=== PATIENT | female | born 1980 | race Caucasian/White ===

== ENCOUNTER → 2019-08-25 14:12 | Outpatient (BNVA) | payer BC, SELFPAY | PROVIDERS: Visit Provider Obstetrics & Gynecology | DX: Z12.4 Encounter for screening for malignant neoplasm of cervix (principal) | CPT/HCPCS: 88175 ==

== ENCOUNTER → 2020-04-13 15:21 | Outpatient (BNVA) | payer BC, SELFPAY | PROVIDERS: Visit Provider Internal Medicine | DX: R41.3 Other amnesia (principal); D68.59 Other primary thrombophilia; F41.9 Anxiety disorder, unspecified; F32.9 Major depressive disorder, single episode, unspecified; R37 Sexual dysfunction, unspecified | CPT/HCPCS: 80053; 82607; 82746; 83036; 83550; 84443; 85025 ==

== ENCOUNTER → 2020-10-05 10:54 | Outpatient (BNVA) | payer BC, SELFPAY | PROVIDERS: PCP Internal Medicine; Visit Provider Nurse Practitioner Family | DX: Z20.822 Contact with and (suspected) exposure to COVID-19 (principal); H66.001 Acute suppurative otitis media without spontaneous rupture of ear drum, right ear | CPT/HCPCS: 87635 ==

== ENCOUNTER → 2021-12-20 15:46 | Outpatient (BNVA) | payer BC, SELFPAY | PROVIDERS: PCP Internal Medicine; Visit Provider Internal Medicine | DX: D64.9 Anemia, unspecified (principal); R41.3 Other amnesia; F41.9 Anxiety disorder, unspecified; F32.9 Major depressive disorder, single episode, unspecified | CPT/HCPCS: 80053; 82607; 83550; 84443; 85025 ==

== ENCOUNTER 2022-01-04 13:09 | Outpatient (CLI) | payer BC, SELFPAY ==
--- NOTE | 2022-01-04 13:00 | MR_ITS ---
WS: [id number] MRI HEAD WITH CONTRAST TECHNIQUE: Sagittal T1, T2 axial, T2 axial FLAIR, axial susceptibility weighted imaging, axial diffus ion weighted images, and coronal T2 images were obtained. Pre and post-T1 axial and post T1 coronal i mages. ADC and FSPGR images. CLINICAL INFORMATION: acute memory impairment. COMPARISON: None. FINDINGS: No evidence of restricted diffusion to suggest acute ischemia. Ventricular system and basal cisterns are patent. No suspicious intracranial signal abnormalities. Cavum septum pellucidum and vergae. No s ignificant parenchymal volume loss. Normal posterior fossa. Normal vascular flow voids at the skull b ase. No extra-axial fluid collections. No evidence of mass or mass effect. Paranasal sinuses and mast oid air cells are well aerated. No hemosiderin on the susceptibly weighted images. Normal optic chiasm and pituitary infundibulum. Temporal lobes and hippocampal formations are normal in appearance. No evidence of mesial temporal sclerosis. Normal cavernous sinuses and Meckel's cave. Normal posterior nasopharynx. Normal parapharyngeal fat. No abnormal intracranial enhancement. Normal dural venous sinuses. Tiny hypoenhancing lesion in the LEFT aspect of the LEFT measuring 3.5 mm like ly pars intermedia cyst or small microadenoma. Recommend correlation with pituitary function studies. MR/MR head wo/w con [id number] IMPRESSION: 1. No evidence of restricted diffusion to suggest acute ischemia. 2. No suspicious intracranial signal abnormalities. Normal calderon-white differen tiation. 3. Temporal lobes and hippocampal formations are normal in appearance. 4. Hypoenhancing 3.5 mm focus in the LEFT posterior pituitary likely incidenta l pars intermedia cyst or small microadenoma. Recommend correlation with pituit nicki function studies for microadenoma. This can be followed up with MRI of the pituitary without and with gadolinium enhancement with dynamic pituitary protoc ol in 6 months 5. No hemosiderin on susceptibly weighted images. 6. No other suspicious findings.
[2022-01-04] MEDS: gadobenate dimeglumine 20 mL vial IV (15:45)
== END 2022-01-04 13:10 | disposition home or self-care (01) ==
LOC: RAD 13:11
PROVIDERS: PCP Internal Medicine; Visit Provider Internal Medicine
DX: R41.3 Other amnesia (principal)
CPT/HCPCS: 70553

== ENCOUNTER 2022-11-06 11:37 | Outpatient (CLI) | payer BC, SELFPAY ==
--- NOTE | 2022-11-06 11:48 | MM_ITS ---
WS: [id number] BILATERAL SCREENING DIGITAL TOMOSYNTHESIS MAMMOGRAM WITH CAD HISTORY: SCREENING COMPARISON: None available. Bilateral CC and MLO views with tomosynthesis and synthetic mammography submitted. Computer aided det ection analyzed. Breast composition: The breasts are heterogeneously dense, which may obscure small masses. No suspici ous masses, microcalcifications or architectural distortion. IMPRESSION: MM/[place] [id number] BI-RADS: 1-Negative FOLLOW UP: 1 Year Follow-up
== END 2022-11-06 11:38 | disposition home or self-care (01) ==
LOC: RAD 11:41
PROVIDERS: PCP Internal Medicine; Visit Provider Nurse Practitioner Women's Health
DX: Z12.31 Encounter for screening mammogram for malignant neoplasm of breast (principal)
CPT/HCPCS: 77063; 77067

== ENCOUNTER 2023-06-24 06:56 | Day surgery (SDC) | payer BC, SELFPAY ==
[2023-06-19 11:24] LABS: Basophils % 0.4 %; Eosinophils # 0.1 10^3/uL (0.0-0.8); Eosinophils % 1.1 %; Hematocrit 39.8 % (36-47); Lymphocytes # 2.1 10^3/uL (0.8-4.8); Lymphocytes % 26.8 %; Mean Corpuscular HGB Conc 33.9 g/dL (30-55); Mean Corpuscular Hemoglobin 30.3 pg (27-33); Mean Corpuscular Volume 89.4 fl (85-98); Mean Platelet Volume 9.8 fL (7.4-10.4); Monocytes # 0.4 10^3/uL (0.2-0.9); Monocytes % 5.4 %; Neutrophils # 5.21 10^3/uL (1.8-7.7); Neutrophils % 65.9 %; Nucleated Red Blood Cells % 0 %; Platelet Count 224 10^3/cmm (157-399); Red Blood Count 4.45 10^6/uL (3.85-5.65); Red Cell Distribution Width 12.9 % (12.1-15.1); White Blood Count 7.91 10^3/uL (3.29-11.43)
--- NOTE | 2023-06-19 11:25 | P.ANESASSM_ITS ---
Pre-Anesthetic Assessment Height/Weight: Height 1.68 m Operation Date: 06/24/23 08:30 Proposed Procedures p Laparoscopic bilateral salpingectomy 79263,Z30.2(Bilateral) - Guicho Clayton MD Familial anesthetic complications: PONV Was Beta Wilfrido taken within 24 hours: N/A Was Clonidine taken within 24 hours: N/A Social No alcohol and No tobacco Exam alert, oriented x 3, clear to auscultation bilaterally and regular rate & rhythm Airway Submandibular: within normal limits Cervical ROM: within normal limits Mallampati: Class II Dentition: full CV/HEM Protein C def. Neuropsych Anxiety and Depression Anesthetic Plan ASA status: 2 Anesthesia: General Medications/Allergies Home Medications Medication Instructions Recorded Confirmed Last Taken Type levonorgestrel 21 mcg/24 hours (8 intrauterine 08/25/19 06/16/23 06/19/23 History yrs) 52 mg intrauterine device (Mirena) vitamin C 50 mg-biotin 1,250 mcg 1 tab PO DAILY 05/10/20 06/19/23 Unknown History chewable tablet (Afxx-Dien-Jshki (vit C-biotin)) rivaroxaban 20 mg tablet (Xarelto) 20 mg PO DAILY #90 tabs 09/05/21 06/19/23 06/17/23 Rx levocetirizine 5 mg tablet (Xyzal) 5 mg PO DAILY 02/18/23 06/19/23 06/19/23 History montelukast 10 mg tablet 10 mg PO DAILY 02/18/23 06/19/23 06/19/23 History Allergies Allergy/AdvReac Type Severity Reaction Status Date / Time No Known Allergies Allergy Verified 06/16/23 08:39 [facility] Anesthesia Medical History Protein C deficiency Genetic-her father also has protein C deficiency. She had a TIA in October 2014 and has been on Xarelto since then. Estrogen-containing contraception is contraindicated No pertinent past medical history Denies: high blood pressure, diabetes, heart, lung, liver, kidney, thyroid, or bleeding problem. PCP: Dr. Vaz TIA (transient ischemic attack) TIA in October 2014 which was thought to be secondary to protein C deficiency. She is currently on Xarelto. Does have some residual memory loss but denies any other deficits. Anxiety and depression Diagnosed in 2014 and has been controlled with medication. Stop medicines in 2020 since exercise helped with her symptoms. Surgical History H/O umbilical hernia repair Open primary repair of umbilical hernia [place] on 02/03/[address] [place] [facility] [place] lipoma excision was performed at the same time S/P excision of lipoma Excision of lipoma abdominal wall--2017 at the time of hernia surgery. S/P ear surgery left ear. 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 S/P wisdom tooth extraction Performed in [place], [place] S/P section 2014 Family History Father Hypertension Multiple myeloma Diabetes Protein C deficiency Hyperlipidemia Factor V Leiden Mother Breast cancer Diagnosed at age 61 Heart disease valve disease Grandmother Colon cancer paternal, diagnosed late 50s Family/Other Diabetes maternal uncle Denies family history of Ovarian cancer Anesthesia complication Uterine cancer Thyroid disease Stroke Female Reproductive History Date of last menstrual period: 06/16/23 Data Anesthesia 06/19/23 11:05 06/19/23 11:05 Short CBC 06/19/23 Range/Units 11:05 WBC 7.91 (3.29-11.43) 10^3/uL Hgb 13.50 (11.27-16.99) g/dL Hct 39.8 (36-47) % MCV 89.4 (85-98) fl Plt Count 224 (157-399) 10^3/cmm Neut % (Auto) 65.9 % Neut # (Auto) 5.21 (1.8-7.7) 10^3/uL Cardiac Studies: 2 No Data to Display
[2023-06-19 11:33] LABS: Add Urine Microscopic? YES; Bilirubin Urine Neg (Negative); Blood Urine 2+ (Negative); Glucose Urine UA Norm (Normal); Ketones Urine 1+ (Negative); Leukocyte Esterase Urine 1+ (Negative); Nitrate Urine Negative (Negative); Protein Urine Neg (Negative); Specific Gravity, Urine 1.015 (1.005-1.030); Urine Appearance Clear (CLEAR); Urine Color Light yellow (Yellow); Urobilinogen Urine Norm (Negative); pH Urine 6 (5-7)
[2023-06-19 11:40] LABS: Alanine Aminotransferase 21 U/L (0-33); Albumin Level 4.3 g/dL (3.5-5.2); Alkaline Phosphatase 67 U/L (35-105); Anion Gap 16.3 (5-19); Aspartate Amino Transferase 15 U/L (0-32); Blood Urea Nitrogen 15 mg/dL (6-20); Calcium 9.1 mg/dL (8.5-10.5); Carbon Dioxide 23 mmol/L (22-29); Chloride 104 mmol/L (98-107); Globulin 2.6 g/dL (1.3-4.6); Glomerular Filtration Rate 79.4 mL/min (90-130); Glucose 96 mg/dL (65-115); Osmolality Calculated 289 mOsm/kg (285-295); Potassium 4.3 mmol/L (3.5-5.1); Sodium 139 mmol/L (136-145); Total Bilirubin 0.3 mg/dL (0.15-1.2); Total Protein 6.9 g/dL (6.6-8.7)
[2023-06-19 11:42] LABS: Add Urine Culture? No; RBC Urine 0-4 /hpf (0-2); Squamous Epithelial Cell Urine 0-4 /hpf (0-5); WBC Urine 0-4 /hpf (0-5)
[2023-06-24] VITALS (11 sets, daily range): BP systolic 114–143; BP diastolic 82–97; PULSE 72–93; RESP 11–19; TEMP 36.1–36.2; O2SAT 94–100; BMI 31.9
[2023-06-24] MEDS: sodium chloride 0.9% 1,000 ML 30 ML IV (07:15)
[2023-06-24 07:22] LABS: OR HCG Qualitative Urine Negative (Negative)
--- NOTE | 2023-06-24 07:30 | W.PM.OPSUD ---
Surgery/Procedure H&P Update DATE OF PROCEDURE: June 24, 2023 DATE H&P PERFORMED: 06/16/23 H&P UPDATE INFORMATION: I have reviewed H&P completed within last 30 days, I have examined patient prior to procedure and No changes to prior documentation PLANNED PROCEDURE: Operation Date: 06/24/23 08:30 Proposed Procedures p Laparoscopic bilateral salpingectomy 23117,Z30.2(Bilateral) - Guicho Clayton MD
[2023-06-24] MEDS: sodium chloride 0.9% 500 ML IV (07:51)
--- NOTE | 2023-06-24 08:33 | ANES.PREANE2 ---
Pre-Anesthetic Assessment Height/Weight: Height 1.68 m Weight 89.811 kg Temp Pulse Resp BP Pulse Ox O2 Del Method 97.0 F L 93 16 124/90 98 Room Air 06/24/23 07:06 06/24/23 07:06 06/24/23 07:06 06/24/23 07:06 06/24/23 07:06 06/24/23 07:06 Preop Diagnosis: desire sterilization Operation Date: 06/24/23 08:30 Proposed Procedures p Laparoscopic bilateral salpingectomy 19889,Z30.2(Bilateral) - Guicho Clayton MD Last intake: Intake Last Liquid Date 06/23/23 Last Liquid Time 20:45 Last Solid Date 06/23/23 Last Solid Time 20:45 Exam alert, oriented x 3, clear to auscultation bilaterally and regular rate & rhythm Airway Submandibular: within normal limits Cervical ROM: within normal limits Mallampati: Class I Anesthetic Plan ASA status: 2 Anesthesia: Anesthesia Evaluation and General Other Pertinent Information off xarelto x 5 days Medications/Allergies Home Medications Medication Instructions Recorded Confirmed Last Taken Type levonorgestrel 21 mcg/24 hours (8 intrauterine 08/25/19 06/16/23 06/23/23 History yrs) 52 mg intrauterine device (Mirena) vitamin C 50 mg-biotin 1,250 mcg 1 tab PO DAILY 05/10/20 06/19/23 Unknown History chewable tablet (Loof-Rrtw-Zipnu (vit C-biotin)) rivaroxaban 20 mg tablet (Xarelto) 20 mg PO DAILY #90 tabs 09/05/21 06/19/23 06/19/23 Rx levocetirizine 5 mg tablet (Xyzal) 5 mg PO DAILY 02/18/23 06/24/23 3 Weeks Ago History ~06/03/23 montelukast 10 mg tablet 10 mg PO DAILY 02/18/23 06/24/23 3 Weeks Ago History ~06/03/23 Allergies Allergy/AdvReac Type Severity Reaction Status Date / Time No Known Allergies Allergy Verified 06/16/23 08:39 Current Medications Generic Name Dose Route Start Last Admin Trade Name Freq PRN Reason Stop Dose Admin Sodium Chloride 1,000 mls @ 30 mls/hr 06/24/23 07:00 06/24/23 07:15 Sodium Chloride 0.9% IV 06/25/23 06:59 30 mls/hr .Q24H APURVA Administration Sodium Chloride 500 mls @ 500 mls/hr 06/24/23 07:39 06/24/23 07:51 Sodium Chloride 0.9% IV 06/24/23 08:38 500 mls/hr ONCE ONE Administration PFSH Anesthesia Medical History Protein C deficiency Genetic-her father also has protein C deficiency. She had a TIA in October 2014 and has been on Xarelto since then. Estrogen-containing contraception is contraindicated No pertinent past medical history Denies: high blood pressure, diabetes, heart, lung, liver, kidney, thyroid, or bleeding problem. PCP: Dr. Vaz TIA (transient ischemic attack) TIA in October 2014 which was thought to be secondary to protein C deficiency. She is currently on Xarelto. Does have some residual memory loss but denies any other deficits. Anxiety and depression Diagnosed in 2014 and has been controlled with medication. Stop medicines in 2019 since exercise helped with her symptoms. Surgical History H/O umbilical hernia repair Open primary repair of umbilical hernia performed on 02/03/[address] Augustin [place] [facility] [place] lipoma excision was performed at the same time S/P excision of lipoma Excision of lipoma abdominal wall--2017 at the time of hernia surgery. S/P ear surgery left ear. 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 S/P wisdom tooth extraction Performed in [place], [place] S/P section 2014 Family History Father Hypertension Multiple myeloma Diabetes Protein C deficiency Hyperlipidemia Factor V Leiden Mother Breast cancer Diagnosed at age 61 Heart disease valve disease Grandmother Colon cancer paternal, diagnosed late 50s Family/Other Diabetes maternal uncle Denies family history of Ovarian cancer Anesthesia complication Uterine cancer Thyroid disease Stroke Female Reproductive History Date of last menstrual period: 06/16/23 Data Anesthesia 06/19/23 11:05 06/19/23 11:05 Cardiac Studies: No Data to Display
[2023-06-24] MEDS: scopolamine 1.5 Patch 1 PATCH TRANSDERMA (08:52)
[2023-06-24] MEDS: ceFAZolin 2,000 MG in sodium chloride 0.9% (plus) 50 ML 100 MG IV (09:29)
[2023-06-24] MEDS: BUPivacaine 0.5% INJ 10 mL INJECTION (10:12)
--- NOTE | 2023-06-24 10:28 | PM.OP ---
Operative Report Date of procedure: June 24, 2023 Pre-op diagnosis: Desire permanent sterilization Post-op diagnosis: same Post-op findings: Normal pelvic anatomy Normal abdominal anatomy Procedure done: Laparoscopic salpingectomy Implants: None Specimens removed/disposition: Left and right fallopian tubes Surgeon: Guicho Clayton MD Estimated blood loss (mL): 5 IV fluids (mL): 1,000 Urine output (mL): 150 Complications: Bradycardia during insufflation Findings: Normal abdominal anatomy Normal pelvic anatomy Procedure: After informed consent, the patient was taken to the operating room where general anesthesia was administered. She was placed in the dorsal lithotomy position and prepped and draped in sterile fashion. Pre-Procedure Time-Out verifying the correct patient identity, correct procedure verified with consent, correct site and side, correct patient position, availability of correct implants and any special equipment or requirements was performed and acknowledge by the OR team. The patient was examined under anesthesia and found to have a normal uterus with normal adnexa. A weighted speculum was placed in the vagina, and the anterior lip of cervix was grasped with the single toothed tenaculum. A uterine manipulator was advanced into the endocervical canal and uterus. The tenaculum was removed after uterine manipulator was secured. The speculum was removed from the vagina. An intraumbilical incision was made with a scalpel. While tenting up on the abdomen, a Verres needle was admitted into the intra-abdominal cavity. A saline drop test was performed and noted to be within normal limits. Pneumoperitoneum was was stopped momentarily as the patient experienced a bradycardic episode, after anesthesia managed the patient and recovered with regular heart rate the pneumoperitoneum was attained with 4 liters of carbon dioxide. The Verres needle was removed. A 5 mm Opitc view trocar and sleeve were admitted into the abdomen and laparoscopic confirmation of location was achieved. A second incision was made 3 cm above the symphysis pubis, and a 5 mm trocar sleeves were admitted into the abdomen under direct laparoscopic visualization without complication. A survey revealed normal abdominal anatomy with the exception of string adhesion to the right lower anterior abdominal wall. A 5 mm blunt probe was advanced through the second trocar sleeve, and light manipulation of ovaries and uterus to assess the posterior aspects was performed. The pelvic survey shows normal uterus, left and right adnexa. The left ovary was noted with a follicular cyst. The string adhesion was fulgurated and transected with good hemostasis with the Ligasure. The patient was placed into Trendelenburg position. The fallopian tubes were inspected bilaterally and the fimbriated ends of the fallopian tubes were visualized bilaterally. Attention was then directed to the right side. The fallopian tube and mesosalpinx were grasped and the underlying mesosalpinx was cauterized and cut using the Ligasure device. Serial cauterization and cutting was used to separate the fallopian tube from the underlying mesosalpinx until it could be amputated cutting it approximated 2 cm from the cornua. Attention was then turned to the contralateral fallopian tube, which was removed in similar fashion. Both specimens were removed through the trocar and sent to pathology. The instruments were removed. The suprapubic trocar port was removed under direct visualization insuring good hemostasis. The carbon dioxide was allowed to escape from the abdomen. The intraumbilical trocar sleeve was withdrawn under visualization with laparoscope in the sleeve to insure hemostasis. The skin incisions were closed with 3-O Monocryl subcuticular stich and Dermabond. The instruments were removed from the vagina, and excellent hemostasis was noted. The patient tolerated the procedure well, and sponge, lap and needle count were correct times two. The patient was taken to the recovery room in good condition.
--- NOTE | 2023-06-24 11:38 | PC.NURSE ---
300ML URINE IN CONRAD BAG UPON REMOVAL
[2023-06-24] MEDS: ibuprofen 800 mg tablet PO (11:46)
--- NOTE | 2023-06-24 15:04 | ANE.PACU2 ---
Inpatient post-anesthesia follow up: Vital signs: Temperature 97.0 F Pulse Rate 72 Respiratory Rate 18 Blood Pressure 122/88 Pulse Oximetry 99 Oxygen Delivery Me thod Room Air Oxygen Flow Rate 8 Fraction of Inspir ed Oxygen Hydration adequate: Yes Nausea and vomiting: No Mental status: Baseline Additional Comments: no apparent anesthetic complicaitons noted
== END 2023-06-24 12:32 | disposition home or self-care (01) ==
PROVIDERS: Anesthesiology; PCP Internal Medicine; Visit Provider Obstetrics & Gynecology
PROC: (CPT 58661; principal; 2023-06-24 08:20)
DX: Z30.2 Encounter for sterilization (principal); Z86.73 Personal history of transient ischemic attack (TIA), and cerebral infarction without residual deficits
CPT/HCPCS: 58661; 36415; 80053; 81001; 81025; 84703; 85025; 86850; 86900; 88302; J0690; J1100; J1885; J2405; J2704; J2710; J3010; J3490; J7030; J7040

== ENCOUNTER → 2023-08-07 14:15 | Outpatient (BNVA) | payer BC, SELFPAY | PROVIDERS: PCP Internal Medicine; Visit Provider Obstetrics & Gynecology | DX: N93.9 Abnormal uterine and vaginal bleeding, unspecified (principal) | CPT/HCPCS: 85025 ==

== ENCOUNTER 2023-08-11 06:05 | Outpatient (CLI) | payer BC, SELFPAY ==
--- NOTE | 2023-08-11 06:45 | US_ITS ---
WS: [id number] US transvaginal [id number] HISTORY: N93.9 - Abnormal uterine and vaginal bleeding, unspecified COMPARISON: None available. Uterus: 8.4 cm x 5.1 cm x 4.4 cm. Normal size anteverted uterus. scar is noted along the lower uterine segment. Endometrium: 0.5 cm. Central portion of the endometrial cavity is very echogenic. Seen only on a few images is a small amount of fluid adjacent to the endometrium and a few cystic areas. These findings can be seen with polyps filling the endometrial cavity. The vascularity is normal. If this is a polyp it measures approximately 4 x 2 mm. No IUD present. No trilaminar appearance noted. Right ovary: 2.3 cm x 2.9 cm x 1.7 cm. Normal size and vascularity, no cystic or solid masses. Left ovary: 2.4 cm x 1.2 cm x 1.8 cm. Normal size and vascularity, no cystic or solid masses. No free fluid in the cul-de-sac. US/US transvaginal [id number] IMPRESSION: 1. No IUD is noted within the endometrial cavity. 2. Echogenic endometrium with loss of the normal trilaminar zones. This may be due to the phase of the menstrual cycle. 3. There is a small amount of fluid capping the central endometrial cavity and a few cystic areas within the endometrium. These findings can be seen with end ometrial polyps. This could possibly be an endometrial polyp nearly filling the entire cavity. This can be reevaluated by sonohysterogram or follow-up ultraso und in 6 to 8 weeks. Suggest follow-up transvaginal pelvic ultrasound at a diff erent stage of the menstrual cycle. By history patient is menstruating at this time. Suggest repeat ultrasound during the late proliferative phase.
== END 2023-08-11 06:06 | disposition home or self-care (01) ==
LOC: RAD 06:05
PROVIDERS: PCP Internal Medicine; Visit Provider Obstetrics & Gynecology
DX: N93.9 Abnormal uterine and vaginal bleeding, unspecified (principal); N85.8 Other specified noninflammatory disorders of uterus
CPT/HCPCS: 76830